=== PATIENT | male | born 1940 | race Caucasian/White ===

== ENCOUNTER → 2021-04-14 10:03 | Outpatient (BNVA) | payer OTHER, SELFPAY | PROVIDERS: Visit Provider Urology | DX: N52.01 Erectile dysfunction due to arterial insufficiency (principal); N32.0 Bladder-neck obstruction; R97.20 Elevated prostate specific antigen [PSA] | CPT/HCPCS: 51798; 99212 ==

== ENCOUNTER 2021-12-19 13:17 | Emergency (ER) | payer OTHER, SELFPAY | END 2021-12-19 14:04 | disposition left against medical advice (07) | PROVIDERS: Emergency Provider Emergency Medicine; PCP Student in an Organized Health Care Education/Training Program | DX: M25.531 Pain in right wrist (principal); M25.532 Pain in left wrist ==

== ENCOUNTER 2022-01-06 10:55 | Outpatient (REF) | payer OTHER, MEDICARE, SELFPAY ==
--- NOTE | ~2022-01-06 | XR_ITS ---
EXAMINATION: XR HIP, LEFT WITH PELVIS XR KNEE, LEFT CLINICAL INFORMATION: Pain in left hip. Pain in the left knee. COMPARISON: None TECHNIQUE: 2 view of the pelvis with 2 views of the left hip. 2 views of the left knee. FINDINGS: Pelvis/left hip: No fracture or dislocation. The hips are well aligned. Mild degenerative change of both hips with narrowing, sclerosis, and small osteophytes. The pelvic rim is intact. Normal bowel gas pattern. Left knee: No fracture or subluxation. Compartmental joint spaces are maintained. Small marginal osteophytes of the patellofemoral compartment. No joint effusion. Vascular calcifications. XR/XR hip LT min 2V IMPRESSION: Mild degenerative change of both hips. Mild degenerative changes at the patellofemoral compartment of the left knee.
--- NOTE | ~2022-01-06 | XR_ITS ---
EXAMINATION: XR HIP, LEFT WITH PELVIS XR KNEE, LEFT CLINICAL INFORMATION: Pain in left hip. Pain in the left knee. COMPARISON: None TECHNIQUE: 2 view of the pelvis with 2 views of the left hip. 2 views of the left knee. FINDINGS: Pelvis/left hip: No fracture or dislocation. The hips are well aligned. Mild degenerative change of both hips with narrowing, sclerosis, and small osteophytes. The pelvic rim is intact. Normal bowel gas pattern. Left knee: No fracture or subluxation. Compartmental joint spaces are maintained. Small marginal osteophytes of the patellofemoral compartment. No joint effusion. Vascular calcifications. XR/XR knee LT 2V IMPRESSION: Mild degenerative change of both hips. Mild degenerative changes at the patellofemoral compartment of the left knee.
== END 2022-01-06 10:56 | disposition home or self-care (01) ==
LOC: HO.XRAY 10:55
PROVIDERS: PCP Student in an Organized Health Care Education/Training Program; Visit Provider Student in an Organized Health Care Education/Training Program
DX: M25.552 Pain in left hip (principal); M25.562 Pain in left knee
CPT/HCPCS: 73502; 73560

== ENCOUNTER 2022-04-07 10:01 | Outpatient (REF) | payer MEDICARE, OTHER, SELFPAY ==
[2022-04-07 12:07] LABS: Prostate Specific Antigen 3.02 ng/mL (<0.05-4.0)
== END 2022-04-07 10:02 | disposition home or self-care (01) ==
LOC: HO.10HDL 10:01
PROVIDERS: Visit Provider Urology
DX: Z12.5 Encounter for screening for malignant neoplasm of prostate (principal); N13.8 Other obstructive and reflux uropathy; N40.1 Benign prostatic hyperplasia with lower urinary tract symptoms; R97.20 Elevated prostate specific antigen [PSA]
CPT/HCPCS: 36415; 84153

== ENCOUNTER → 2022-04-18 09:20 | Outpatient (BNVA) | payer MEDICARE, OTHER, SELFPAY | PROVIDERS: Visit Provider Urology | DX: N52.01 Erectile dysfunction due to arterial insufficiency (principal); N40.1 Benign prostatic hyperplasia with lower urinary tract symptoms; N13.8 Other obstructive and reflux uropathy | CPT/HCPCS: 51798; 99212 ==

== ENCOUNTER → 2022-08-31 13:42 | Outpatient (BNVA) | payer MEDICARE, SELFPAY | PROVIDERS: Visit Provider Urology | DX: R97.20 Elevated prostate specific antigen [PSA] (principal); N32.0 Bladder-neck obstruction; N52.01 Erectile dysfunction due to arterial insufficiency | CPT/HCPCS: Q3014 ==

== ENCOUNTER 2023-08-08 11:51 | Outpatient (REF) | payer MEDICARE, SELFPAY | END 2023-08-08 11:52 | disposition home or self-care (01) | LOC: HO.CHCLDS 11:51 | PROVIDERS: Visit Provider Student in an Organized Health Care Education/Training Program | DX: R74.8 Abnormal levels of other serum enzymes (principal) | CPT/HCPCS: 36415; 80076 ==

== ENCOUNTER 2023-08-30 15:09 | Outpatient (REF) | payer MEDICARE, SELFPAY ==
[2023-08-30 17:04] LABS: Prostate Specific Antigen 4.41 ng/mL (<0.05-4.0)
== END 2023-08-30 15:10 | disposition home or self-care (01) ==
LOC: HO.CHCLDS 15:09
PROVIDERS: Visit Provider Urology
DX: Z12.5 Encounter for screening for malignant neoplasm of prostate (principal); R97.20 Elevated prostate specific antigen [PSA]
CPT/HCPCS: 36415; 84153

== ENCOUNTER 2023-09-05 08:13 | Outpatient (AMB) | payer MEDICARE, SELFPAY ==
--- NOTE | 2023-09-05 08:14 | A.OFFVIS_ITS ---
Intake Intake Visit Reasons: 1Y PSA(set) Intake Note: Patient is Present for Follow Up PSA Urology Medication: Tadalafil Antibiotic Allergies:None Blood Thinners: None Allergies No Known Allergies [No Known Allergies*] Allergy (Verified 09/05/23 08:27) HPI HPI Comments History of Present Illness Details Earl Smith is a very pleasant male. He is a patient of Dr Harrison. He is seen for the following urologic conditions. - lower urinary tract symptoms - erectile dysfunction PSA 4.4 Not currently on medication KD normal Repeat PSA in 6 months Erectile dysfunction Ongoing Failed Viagra 100 mg with dose escalation Failed tadalafil on maximum daily dose Prior discussion regarding penile pump or injections. Lower Urinary Tract Symptoms:? Has stopped all prostate medications Good urination maintained ? Current visit is for?further evaluation of, predominate obstructive symptoms.? Current treatment includes?10/23 GLP large prostate ?medication, alpha joel, 5-AR.? Prostate Symptom Score?08/25 Moderate (9-19), Bother 3.? Symptoms include?incomplete emptying, weak stream, nocturia (>2), and are progressing.? Prostate volume?50+gm.? - PSA 04/27 3.1 ? Associated conditions? CAD ?No ? CVA ?No ? diabetes ?Yes ? elevated PSA ?No ? erectile dysfunction ?yes Treatment plan?continue with current medications.? [facility] Medical History Hematuria Impaired fasting glucose Basal cell carcinoma Incomplete emptying of bladder Benign prostatic hyperplasia with lower urinary tract symptoms Poor urinary stream Nocturia Erectile dysfunction due to arterial insufficiency Gallstones Bladder outlet obstruction Acute cystitis with hematuria Chronic prostatitis Elevated PSA Surgical History History of surgery Review of Systems Const Denies chills and Denies fever(s) Card Reports no additional complaints and Denies syncope Resp Denies cough GI Denies abdominal pain and Denies heartburn Reports as per HPI and Denies change in libido Neuro Denies syncope Psych Denies change in libido Endo Denies change in libido Physical Exam Const General: cooperative, healthy appearing, comfortable and no acute distress Orientation/consciousness: patient oriented x3 HEENT Face and sinus: Yes normal facial exam Mouth: moist mucous membranes Neck Neck: Yes normal visual inspection, Yes full ROM and Yes trachea midline Chest Chest palpation & inspection: normal inspection of the chest Resp Effort & Inspection: normal respiratory effort, able to speak in complete sentences and no respiratory distress GI Inspection: Yes normal to inspection Rectal Exam - Male: Yes normal sphincter tone and Yes prostate normal Male General Exam: Yes normal external exam Penis: normal penis and circumcised Meatus: meatus normal Scrotum: scrotum normal Testes: Testes normal Back/Spine/Pelvis Cervical Spine: normal cervical lordosis Thoracic/Lumbar Spine: thoracic and lumbar spine normal to inspection Skin General skin exam: no rashes or lesions noted Neuro General: patient oriented x3, gait normal, tone normal and moves all extremities Extrem General: Yes normal to inspection and Yes capillary refill normal Assessment & Plan Assessment & Plan (1) Erectile dysfunction due to arterial insufficiency: Code(s): N52.01 - Erectile dysfunction due to arterial insufficiency (2) Bladder outlet obstruction: Code(s): N32.0 - Bladder-neck obstruction Plan Six-month follow-up PSA Orders: Orders PSA,Total (Free>4and<10) 6 Months R97.20 - Elevated prostate specific antigen [PSA] Patient Instructions: Imaging studies, laboratory and physical exam results were discussed and reviewed in detail. No major barriers to patient understanding were identified. An opportunity to ask questions regarding the treatment plan was provided. All questions were answered. The patient expressed understanding and agreement with the above treatment plan. The patient is aware they should contact our office by phone for worsening of their current condition or the appearance of new urologic symptoms. Compliance is encouraged with any medications and followup testing that is ordered. It is a privilege to participate in the urologic care of your patient. If you have any questions or concerns regarding treatment for the above conditions, or other urologic issues, please do not hesitate to contact me. The office telephone contact is [phone]. This note is constructed using voice recognition software. While every effort has been made to ensure accuracy line installer repairer errors may have been included. Yours sincerely, Dr Ayad Watson MD, [facility] - Urology Providers of Expert, Compassionate Care for the Genitourinary System Coding Level of Care Code Est Pt Level 4 (13819) Diagnoses Erectile dysfunction due to arterial insufficiency N52.01 Bladder outlet obstruction N32.0
== END 2023-09-05 09:04 | disposition home or self-care (01) ==
PROVIDERS: Visit Provider Urology
DX: N52.01 Erectile dysfunction due to arterial insufficiency (principal); N32.0 Bladder-neck obstruction
CPT/HCPCS: 99213

== ENCOUNTER → 2023-09-05 08:13 | Outpatient (BNVA) | payer MEDICARE, SELFPAY | PROVIDERS: Visit Provider Urology | DX: N52.01 Erectile dysfunction due to arterial insufficiency (principal); N32.0 Bladder-neck obstruction | CPT/HCPCS: 99212 ==

== ENCOUNTER 2023-10-01 11:19 | Outpatient (REF) | payer MEDICARE, SELFPAY ==
[2023-10-01 15:07] LABS: Estimated Average Glucose 120 mg/dL; Hemoglobin A1c % 5.8 % (<6.0)
[2023-10-01 15:13] LABS: Anion Gap 14 (12-20); Blood Urea Nitrogen 9 mg/dL (9-16); Calcium 9.3 mg/dL (8.4-10.2); Carbon Dioxide 27 mmol/L (22-29); Chloride 102 mmol/L (96-108); Estimated Glomerular Filt Rate > 60; Glucose Random 146 mg/dL (60-115); Potassium 3.7 mmol/L (3.3-5.1); Sodium 139 mmol/L (135-145)
== END 2023-10-01 11:20 | disposition home or self-care (01) ==
LOC: HO.CHCLDS 11:19
PROVIDERS: Visit Provider Student in an Organized Health Care Education/Training Program
DX: R73.09 Other abnormal glucose (principal)
CPT/HCPCS: 36415; 80048; 83036

== ENCOUNTER 2024-01-21 14:07 | Emergency (ER) | payer MEDICARE, SELFPAY ==
--- NOTE | ~2024-01-21 | CT_ITS ---
EXAMINATION: CT HEAD W/O IV CONTRAST CT CERVICAL SPINE W/O IV CONTRAST CLINICAL INFORMATION: History of fall 9 days ago. Trauma. Vision changes. COMPARISON: None TECHNIQUE: Head - Contiguous axial imaging of the head was performed from the skull base to the vertex without the administration of intravenous contrast, and axial images are reconstructed at 2 mm and 5 mm slice thickness. Cervical spine - A volumetric, helical CT acquisition of the cervical spine was obtained without contrast; in addition to the standard set of axial images, multiplanar reformatted images were provided in the coronal and sagittal imaging planes. This CT examination was performed using dose optimization techniques as appropriate, variously including the following: *Automated exposure control *Adjustment of mA and/or kV according to patient size (this includes techniques or standardized protocols for targeted exams where dose is matched to indication/reason for exam; i.e. extremities or head) *Use of iterative reconstruction technique DLP: 1072 mGy-cm (total) FINDINGS: HEAD: No intracranial hemorrhage, extra-axial surface collection, focal mass effect or midline shift. Atherosclerotic calcification of cavernous carotid arteries and intradural segments of vertebral arteries. Patchy hypoattenuation within supratentorial white matter is compatible with sequela of chronic microangiopathy and there are old lacunar infarcts in gangliocapsular regions. There are areas of encephalomalacia from old infarcts within the superior right frontal lobe and inferior left cerebellum. A region of hypoattenuation with loss of alejo-white differentiation in the right occipital lobe could represent a subacute infarction (images 20-24, series 4). Moderate parenchymal volume loss with commensurate prominence of ventricles and sulci. No hydrocephalus. No scalp hematoma or calvarial fracture. The visualized paranasal sinuses and mastoid air cells are well aerated. 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 Prior ocular lens extractions/replacements. CERVICAL SPINE: The cervical spine has well preserved lordotic curvature. The craniocervical junction is normal. The occipital condyles, dens and atlantodental articulation are intact. The vertebral body heights and alignment are maintained. No fractures in the anterior or posterior elements. No prevertebral edema or soft tissue hematoma. There is multilevel disc degenerative change and facet arthropathy. The facet joint degeneration is worst on the left at C2-C3. There is osseous fusion between the C3 and C4 vertebral bodies. There is no significant stenosis of the cervical spinal canal. The uncovertebral joint hypertrophy at C4-C5 causes moderate bilateral neural foraminal stenosis. Thyroid gland is atrophied and otherwise unremarkable. No acute findings within visualized lung apices. CT/CT cervical spine wo IV con IMPRESSION: * No evidence of intracranial mass or hemorrhage. 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 * The area of hypoattenuation in the right occipital lobe could represent a subacute infarction (images 20-24, series 4). * No acute fracture or malalignment of the degenerated cervical spine.
[2024-01-21 14:11] VITALS: BP 137/82; PULSE 102; RESP 16; TEMP 36.6; O2SAT 98; BMI 24.7
--- NOTE | 2024-01-21 14:11 | ED.GENADULT ---
HPI - General Adult General Chief complaint: Eye Problems Stated complaint: head inj sent in by pcp for ct scan Related Data Home Medications ?Medication ?Instructions ?Recorded ?Confirmed betamethasone dipropionate 0.05 % topical BID 04/14/21 08/31/22 topical ointment cyclosporine 100 mg capsule 100 mg PO DAILY 04/14/21 08/31/22 cyclosporine 100 mg capsule 200 mg PO BID 04/14/21 08/31/22 hydroxyzine HCl 10 mg tablet 10 mg PO DAILY PRN anxiety 04/18/22 08/31/22 Previous Rx's ?Medication ?Instructions ?Recorded celecoxib 100 mg capsule 100 mg PO BID 30 days #60 caps 04/18/22 tadalafil 20 mg tablet 20 mg PO DAILY sexual activity 90 05/30/22 days #90 tabs Allergies Allergy/AdvReac Type Severity Reaction Status Date / Time No Known Allergies Allergy Verified 01/21/24 14:16 [No Known Allergies*] [facility] Past Medical History Medical History Hematuria Impaired fasting glucose Basal cell carcinoma Incomplete emptying of bladder Benign prostatic hyperplasia with lower urinary tract symptoms Poor urinary stream Nocturia Erectile dysfunction due to arterial insufficiency Gallstones Bladder outlet obstruction Acute cystitis with hematuria Chronic prostatitis Elevated PSA Surgical History History of surgery Social History Social History Advance Directives: No Advance Directives Information Provided: No Physical Exam ED Vital Signs: BMI result Body Mass Index 24.7 Course Course Course Narrative: This is a rapid medical exam completed by Mckenzie BOLIVARN: Additional HPI, ROS, PE not included below will be deferred to primary provider. Double vision for the past 5 days with blurred vision in both eyes starting today. Reports that he had a fall on January 09. Reports slight headaches and sensation of vertigo Spoke to his PCP earlier this morning who recommended he come to the ED for a CT scan of the head. Contacted his eye dr for an emergency appt and saw Dr Burgess who reports that there was a problem with a lense that was replaced several years ago for cataracts as there is increased calcium and needs replacement. Discharge Plan Discharge Clinical Impression: Left before treatment completed Patient Disposition: Left W/O Completing Treatment Prescriptions: No Action tadalafil 20 mg tablet 20 mg PO DAILY 90 Days Qty: 90 0RF cyclosporine 100 mg capsule 200 mg PO BID betamethasone dipropionate 0.05 % ointment topical BID cyclosporine 100 mg capsule 100 mg PO DAILY hydroxyzine HCl 10 mg tablet 10 mg PO DAILY PRN (Reason: anxiety) celecoxib 100 mg capsule 100 mg PO BID 30 Days Qty: 60 0RF Interventions: EVITA Worksheet Last Done: 01/21/24 19:28 Discharge Date/Time: 01/21/24 19:44
--- NOTE | 2024-01-21 18:00 | MHC.EDTECH ---
This pct called patient 4 seperate times and all 4 times patient was abscent from waiting room. RN Aware
== END 2024-01-21 19:44 | disposition left against medical advice (07) ==
LOC: HO.ED 19:33
PROVIDERS: Emergency Provider Emergency Medicine; PCP Student in an Organized Health Care Education/Training Program
DX: H53.2 Diplopia (principal); H53.9 Unspecified visual disturbance; M54.2 Cervicalgia; R51.9 Headache, unspecified
CPT/HCPCS: 70450; 72125; 99281; 99284

== ENCOUNTER 2024-02-27 06:36 | Outpatient (REF) | payer MEDICARE, SELFPAY ==
--- NOTE | ~2024-02-27 | MR_ITS ---
MRI OF THE BRAIN WITHOUT IV CONTRAST INDICATION: Question subacute stroke. COMPARISON: Head CT January 21, 2024. TECHNIQUE: Multiplanar multisequence MR imaging of the brain was obtained without IV contrast. FINDINGS: There is an early subacute appearing infarct involving the right splenium of the corpus callosum, the right peritrigonal white matter, and the right occipital lobe. Cytotoxic edema results in mild local cerebral sulcal effacement without midline shift. There is no hemorrhagic transformation. There is global cerebral volume loss, there is moderate chronic microangiopathy, and there are chronic infarcts within the right perirolandic region, the centrum semiovale bilaterally, the coronal radiata bilaterally, and the left cerebellum. Etat crible appearance of the basal ganglia bilaterally as the sequela of chronic hypertension. Absent right vertebral artery flow void suggesting slow flow within versus occlusion of this vessel. Previously There is no hydrocephalus, extra-axial surface collection, or herniation. There is no intracranial hemorrhage on the gradient recalled echo acquisition. The midline structures are normal. The cerebellar tonsils are normally positioned. The craniocervical junction is normal. Osseous marrow signal intensity is homogenous. The visualized soft tissues are unremarkable. MR/MR head/brain wo con IMPRESSION: * There is an early subacute appearing infarct involving the right splenium of the corpus callosum, the right peritrigonal white matter, and the right occipital lobe. Cytotoxic edema results in mild local cerebral sulcal effacement without midline shift. There is no hemorrhagic transformation. * There is global cerebral volume loss, there is moderate chronic microangiopathy, and there are chronic infarcts within the right perirolandic region, the centrum semiovale bilaterally, the coronal radiata bilaterally, and the left cerebellum. Etat crible appearance of the basal ganglia bilaterally as the sequela of chronic hypertension. * Absent right vertebral artery flow void suggesting slow flow within versus occlusion of this vessel.
== END 2024-02-27 06:37 | disposition home or self-care (01) ==
LOC: HO.MRI 06:36
PROVIDERS: PCP Student in an Organized Health Care Education/Training Program; Visit Provider General Practice
DX: Z86.73 Personal history of transient ischemic attack (TIA), and cerebral infarction without residual deficits (principal)
CPT/HCPCS: 70551

== ENCOUNTER 2024-03-10 16:14 | Emergency (ER) | payer MEDICARE, SELFPAY ==
--- NOTE | ~2024-03-10 | CT_ITS ---
EXAMINATION: CT HEAD WITHOUT CONTRAST CT CERVICAL SPINE WITHOUT CONTRAST CLINICAL INFORMATION: Fall. COMPARISON: MRI of the brain February 27, 2024. CT head January 21, 2024 TECHNIQUE: Imaging was performed from the skull base to vertex without intravenous administration of contrast. In addition, helical noncontrast CT imaging was acquired through the cervical spine and source images were reviewed along with axial reconstructions and sagittal and coronal MPRs. [This CT examination was performed using dose optimization techniques as appropriate, variously including the following: *Automated exposure control *Adjustment of mA and/or kV according to patient size (this includes techniques or standardized protocols for targeted exams where dose is matched to indication/reason for exam; i.e. extremities or head) *Use of iterative reconstruction technique] DLP: 961 mGy-cm FINDINGS: HEAD: No intracranial mass, hemorrhage, or midline shift is visualized. 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 There is a larger geographic area of low attenuation in the right occipital lobe consistent with old infarct. This infarct previously demonstrated diffusion weighted imaging restriction on MR exam February 27, 2024. No evidence of an acute infarct. There is generalized global volume loss. There is moderate prominence of the ventricles and the sulci . There is moderate hypodensity of the periventricular white matter due to chronic small vessel ischemic disease. There are vascular calcifications of the internal carotid arteries bilaterally. No extra-axial collections are identified. The paranasal sinuses and mastoid air cells are well aerated. CERVICAL SPINE: There is no evidence of acute cervical spine fracture. Vertebral bodies remain normal in height. Cervical vertebrae have normal alignment. There is multilevel degenerative spondylosis of the cervical spine with disc height narrowing and endplate spurs and facet joint arthrosis No pre- or paravertebral soft tissue abnormality is identified. Limited assessment of the lung apices is unremarkable. CT/CT cervical spine wo IV con IMPRESSION: 1. No acute intracranial pathology. 2. No CT evidence of acute cervical spine fracture or traumatic subluxation
--- NOTE | ~2024-03-10 | XR_ITS ---
EXAMINATION: XR HIP, LEFT CLINICAL INFORMATION: Pain COMPARISON: 01/06/2022 TECHNIQUE: Frontal view the pelvis with coned frontal and frog-leg lateral views of the left hip. FINDINGS: Degenerative changes seen within both hips with mild marginal osteophyte formation along the superior acetabula. I do not appreciate any cortical disruption or trabecular irregularity to suggest underlying fracture or dislocation. Unremarkable bowel gas pattern. XR/XR hip LT w PEL1V IMPRESSION: Mild degenerative changes but no acute fracture or dislocation.
--- NOTE | ~2024-03-10 | XR_ITS ---
EXAMINATION: XR CHEST CLINICAL INFORMATION: Fall COMPARISON: Chest radiograph 02/18/2019 TECHNIQUE: 2 views of the chest were obtained. FINDINGS: There is a thoracic kyphosis with mild anterior wedging of thoracic vertebral bodies. No other significant abnormality is noted involving the heart, lungs, mediastinum, bony thorax or soft tissues. Compared with 02/18/2019, there's been no interval change. XR/XR chest 2V IMPRESSION: No acute intrathoracic disease. Thoracic kyphosis with mild anterior wedging of thoracic vertebral bodies.
[2024-03-10 16:29] VITALS: BP 129/77; BP 132/62; PULSE 78; PULSE 98; RESP 18; TEMP 36.6; O2SAT 98; O2SAT 99; BMI 20.8
--- NOTE | 2024-03-10 16:32 | ECG_ITS ---
Test Reason : fall Blood Pressure : / mmHG Vent. Rate : 085 BPM Atrial Rate : 085 BPM P-R Int : 216 ms QRS Dur : 074 ms QT Int : 352 ms P-R-T Axes : 090 -03 049 degrees QTc Int : 418 ms Sinus rhythm with 1st degree A-V block Nonspecific ST and T wave abnormality Abnormal ECG No previous ECGs available Referred By: Barry Pisano Electronically Signed By:ASTER ESPINO MD
--- NOTE | 2024-03-10 16:34 | ED.FALL ---
HPI - Fall General Chief Complaint: Fall Stated Complaint: fall/dizziness, secondary to vertigo, no thinners Time Seen by Provider: 03/10/24 16:26 Source: patient Mode of arrival: ambulatory Limitations: no limitations History of Present Illness HPI Narrative: 84-year-old male presents via EMS after a fall. Patient states that he was getting to the bathroom around 02:00 and states he felt slightly dizzy and then fell backwards he states he did not lose conscious he did not hit his head he states he is down for prolonged period of time he noticed some stool underneath him he is able to get up with the bathroom after that. Patient found by EMS this state there was no stool or urine on him. Patient is unsure if he hit his head or if he had loss of consciousness he is unsure how long he was down. Patient was found by elderly services who came to check on him. He lives alone Related Data Home Medications ?Medication ?Instructions ?Recorded ?Confirmed betamethasone dipropionate 0.05 % topical BID 04/14/21 08/31/22 topical ointment cyclosporine 100 mg capsule 100 mg PO DAILY 04/14/21 08/31/22 cyclosporine 100 mg capsule 200 mg PO BID 04/14/21 08/31/22 hydroxyzine HCl 10 mg tablet 10 mg PO DAILY PRN anxiety 04/18/22 08/31/22 Previous Rx's ?Medication ?Instructions ?Recorded celecoxib 100 mg capsule 100 mg PO BID 30 days #60 caps 04/18/22 tadalafil 20 mg tablet 20 mg PO DAILY sexual activity 90 05/30/22 days #90 tabs Allergies Allergy/AdvReac Type Severity Reaction Status Date / Time No Known Allergies Allergy Verified 03/10/24 16:31 [No Known Allergies*] [facility] Past Medical History Medical History Hematuria Impaired fasting glucose Basal cell carcinoma Incomplete emptying of bladder Benign prostatic hyperplasia with lower urinary tract symptoms Poor urinary stream Nocturia Erectile dysfunction due to arterial insufficiency Gallstones Bladder outlet obstruction Acute cystitis with hematuria Chronic prostatitis Elevated PSA Surgical History History of surgery Social History Social History Alcohol intake: current Alcohol intake frequency: 3 or more drinks per day Alcohol type: beer Smoked in Last 30 Days: No Use of substances other than those prescribed or required for medical reasons: No Advance Directives: Yes Advance Directives Information Provided: No Advance Directives on File: No Physical Exam Vital Signs: Vital Signs: Last Vital Signs Temp 97.8 F 03/10/24 16:29 Pulse 81 03/10/24 17:35 Resp 16 03/10/24 17:35 BP 147/81 H 03/10/24 17:35 Pulse Ox 99 03/10/24 17:35 O2 Del Method Room Air 03/10/24 17:35 BMI result Body Mass Index 20.8 Course Course Course Narrative: Patient had CT and labs done he will be seen by PT and case management likely tomorrow. Failed ambulation trial here. Medications Administered Discontinued Medications Generic Name Dose Route Start Last Admin Trade Name Freq PRN Reason Stop Dose Admin Sodium Chloride 1,000 mls @ 999 mls/hr 03/10/24 16:45 03/10/24 17:35 Ns IV 03/10/24 17:45 999 mls/hr .Q1H1M [facility] Administration Medical Decision Making Medical Decision Making [facility] Narrative: I will get CT and labs and reassess. Differential Diagnosis Differential Diagnoses: The differential diagnosis associated with the presentation includes Fall prolonged downtime rhabdomyolysis dehydration acute intracranial hemorrhage injury nutrition again Admission/Observation Consideration of admission/observation: Escalation of care including admission/observation considered Lab Data [facility] Lab Attestation statement: I reviewed the patient's lab results. 03/10/24 17:31 03/10/24 17:31 Labs: Lab Results 03/10/24 Range/Units 17:31 WBC 9.7 (4.8-10.8) X10*3/uL RBC 4.23 L (4.60-5.80) X10*6/uL Hgb 12.0 L (14.0-18.0) g/dl Hct 36.0 L (42.0-52.0) % MCV 85.1 (80.0-98.0) fL MCH 28.4 (27.0-33.0) pg MCHC 33.3 (31.0-36.0) g/dl RDW 14.7 (11.0-16.0) % Plt Count 326 (160-400) X10*3/uL MPV 9.5 (9.4-12.4) fL Immature Gran % (Auto) 0.4 (0.0-0.4) % Neut % (Auto) 70.3 (45-73) % Lymph % (Auto) 19.3 L (20-40) % King % (Auto) 8.2 (2-11) % Eos % (Auto) 1.5 (0-4) % Baso % (Auto) 0.3 (0-2) % Lymph # (Auto) 1.9 (1.2-4.9) X10*3/uL King # (Auto) 0.8 (0.1-1.2) X10*3/uL Eos # (Auto) 0.2 (0.0-0.4) X10*3/uL Baso # (Auto) 0.0 (0.0-0.2) X10*3/uL Abs Immat Gran (auto) 0.04 H (0.00-0.03) X10*3/uL Absolute Neuts (auto) 6.8 (2.0-8.3) x10*3/uL Absolute Nucleated RBC 0.000 (0.0-0.012) X10*3/uL Nucleated RBC % (auto) 0.0 (0.0-0.2) /100WBC Sodium 140 (135-145) mmol/L Potassium 2.9 L* D (3.3-5.1) mmol/L Chloride 104 (96-108) mmol/L Carbon Dioxide 23 (22-29) mmol/L Anion Gap 16 (12-20) BUN 27 H (9-16) mg/dL Creatinine 1.27 (0.5-1.4) mg/dL Estim Creat Clear Calc 41.9 Estimated GFR 54 Random Glucose 171 H (60-115) mg/dL Calcium 10.6 H D (8.4-10.2) mg/dL Total Bilirubin 0.6 (0.0-1.0) mg/dL Direct Bilirubin 0.3 (0.0-0.5) mg/dL AST 12 (5-37) U/L ALT 15 (0-40) U/L Alkaline Phosphatase 79 (39-117) U/L Total Creatine Kinase 21 L (38-174) U/L Total Protein 6.7 (6.5-8.0) g/dL Albumin 3.4 L (3.5-5.0) g/dL Lipase 53 (8-78) U/L Independent Interpretation I performed an independent interpretation of an: EKG, Plain X-Ray and CT Scan Interpretation: EKG rate 85 normal sinus rhythm normal intervals no signs of ischemia no previous for comparison interpreted by me Radiology Impression Discussion of test interpretation with radiology: I have reviewed the radiologist's reading. Independent Historian Clinical information obtained from an independent historian. History obtained from or confirmed by: EMS External Record Review External record reviewed: Inpatient record, Office record and Outpatient record Social Determinants Patient?s care significantly limited by Social Determinants of Health including: Inadequate housing and Problems related to primary support group Lives alone Discharge Plan Discharge Clinical Impression: Fall, Weakness Patient Disposition: Still a Patient Prescriptions: No Action tadalafil 20 mg tablet 20 mg PO DAILY 90 Days Qty: 90 0RF cyclosporine 100 mg capsule 200 mg PO BID betamethasone dipropionate 0.05 % ointment topical BID cyclosporine 100 mg capsule 100 mg PO DAILY hydroxyzine HCl 10 mg tablet 10 mg PO DAILY PRN (Reason: anxiety) celecoxib 100 mg capsule 100 mg PO BID 30 Days Qty: 60 0RF Print Language: Albanian
[2024-03-10 17:34] LABS: MANUAL DIFF FLAG NO
[2024-03-10 17:35] VITALS: BP 147/81; PULSE 79; PULSE 81; RESP 16; O2SAT 99
[2024-03-10] MEDS: 0.9 % Sodium Chloride 1,000 ML 999 ML IV (17:35)
--- NOTE | 2024-03-10 17:38 | PC.NURSE ---
cleansed of stool. good bed mobility. skin pwd. pt had cleaned himself up a little. dry mm. axox3. nsr on monitor.
[2024-03-10 17:39] LABS: Basophils Percent Auto 0.3 % (0-2); Eosinophils Absolute Auto 0.2 X10*3/uL (0.0-0.4); Eosinophils Percent Auto 1.5 % (0-4); Imm Gran Abs Auto 0.04 X10*3/uL (0.00-0.03); Imm Gran Pct Auto 0.4 % (0.0-0.4); Lymphocytes Absolute Auto 1.9 X10*3/uL (1.2-4.9); Lymphocytes Percent Auto 19.3 % (20-40); Mean Corpuscular HGB Conc 33.3 g/dl (31.0-36.0); Mean Corpuscular Hemoglobin 28.4 pg (27.0-33.0); Mean Corpuscular Volume 85.1 fL (80.0-98.0); Mean Platelet Volume 9.5 fL (9.4-12.4); Monocytes Absolute Auto 0.8 X10*3/uL (0.1-1.2); Monocytes Percent Auto 8.2 % (2-11); Neutrophils Absolute Auto 6.8 x10*3/uL (2.0-8.3); Neutrophils Percent Auto 70.3 % (45-73); Platelet Count 326 X10*3/uL (160-400); Red Blood Count 4.23 X10*6/uL (4.60-5.80); Red Cell Distribution Width 14.7 % (11.0-16.0); White Blood Count 9.7 X10*3/uL (4.8-10.8)
[2024-03-10 17:54] LABS: Alanine Aminotransferase 15 U/L (0-40); Albumin Level 3.4 g/dL (3.5-5.0); Alkaline Phosphatase 79 U/L (39-117); Anion Gap 16 (12-20); Aspartate Amino Transferase 12 U/L (5-37); Bilirubin Direct 0.3 mg/dL (0.0-0.5); Bilirubin Total 0.6 mg/dL (0.0-1.0); Blood Urea Nitrogen 27 mg/dL (9-16); Calcium 10.6 mg/dL (8.4-10.2); Carbon Dioxide 23 mmol/L (22-29); Chloride 104 mmol/L (96-108); Creatinine Clr Calc Pharmacy 41.9; Estimated Glomerular Filt Rate 54; Glucose Random 171 mg/dL (60-115); Lipase 53 U/L (8-78); Potassium 2.9 mmol/L (3.3-5.1); Sodium 140 mmol/L (135-145); Total Protein 6.7 g/dL (6.5-8.0)
--- NOTE | 2024-03-10 19:44 | PC.NURSE ---
Pt ca&ox3, no signs of distress. Pt up oob walking with tech assist, unsteady gait Pt denies pain at this time Plan of care ongoing.
[2024-03-10] MEDS: Potassium Chloride/H20 10 MEQ/100 ML PIGGYBACK 100 MEQ IV (21:29)
[2024-03-10] MEDS: Potassium Chloride ER 20 MEQ TAB.ER.PRT 40 MEQ PO (21:30)
--- NOTE | 2024-03-10 21:37 | PC.NURSE ---
Pt medicated per oct. This RN medicated pt with meds due from previous shift. This RN documented on ns from previous shift, pt was not connected to ns when this RN assumed care. Plan of care ongoing.
[2024-03-10 21:42] LABS: Appearance Urine Clear; Color Urine Yellow; Glucose Urine UA Negative (Negative); Leukocyte Esterase Urine Trace (Negative); Nitrite Urine Negative (Negative); PH 5.5 (5.0-9.0); Specific Gravity - Urine 1.025 (1.005-1.025); UMIC TRIGGER UACC YES; Urine Blood Negative (Negative); Urine Ketones 15 mg/dL (Negative); Urine Protein 30 (1+) mg/dL (Neg-Trace)
--- NOTE | 2024-03-10 21:43 | MHC.CM.ED ---
CM met with patient at the request of Dr. Pisano. He likes to be called MARYELLEN. Pt is A&Ox3. Pt lives alone. Uses a cane. Has no services. Pt has extremely poor vision; he can only see shadows, no details. He cannot read, drive or cook. He states he gets take out or his neighbor cooks him food. He is estranged from his children, but he does not say much more. He states he does not take any medication except for tylenol arthritis and motrin. He does speak with his sister, Estefani Smith, who is a retired RN and is 95 years old. He tells CM she is his HCP and that he completed paper work. Pt Tells CM that his problem is his vision and if Dr. Shira Evans would fix his vision, he would be fine. Pt tells CM that Dr. Evans removed his lenses and now he can't see. She says he has been like this for 2 months. He has no follow up appointment with Dr. Evans. His PCP is Dr. Stark. He has no appointment scheduled that he knows of. His neighbor has helped him with rides in the past, but he states he told her not to bother him, so he does not think she will be helping him in the future. Pt is very resistant to having any help in the home. He tells me that [facility] tried to get him a life alert, but he refused. He does think he might need help, but he refuses to have anyone help him. Pt is agreeable to PT evaluation, but states he will not have physical therapy. Pt gets teary when speaking about his family and his children. Pt is agreeable to speaking with his sister, Estefani ([phone]). CM called and left a message to return our call. Pt begrudgingly agreed to CM calling his son, Earl ([phone]), but he does not think he will speak with me. CM called and spoke with son, Earl. Earl tells CM that he has been estranged from his father for about a year. States he hasn't been truthful with him growing up, but did not elaborate on this. States his father can be very difficult and will not do what he does not want to. Earl feels like his father needs help at home, but agrees that he will not accept it. Earl reports that his father had cataract surgery 2 years ago, and recently has some issues with a film across his lens, which the eye doctor was going to repair, but then he had a stroke. He believes his father's vision has been poor for a while. Earl admits that he got most of his information about his father from his sister. Earl believes he should be the contact for his father. Pt failed trial ambulation. PT is pending. No referrals placed, as patient is still not agreeable to any assistance. CM received a telephone call from Marie at [facility] [place]. She tells CM they are opening an investigation. They found him today on the floor in the bathroom. He was covered in feces and urine. She tells CM that [facility] has tried to offer services in the home, but the patient has refused help. Barry Christensen will be the contact at [facility] [place]. Pt does not seem to understand that he is not safe at home and cannot continue to live like this without help. He is alert and oriented. If patient is not agreeable to STR or help in the home, then CM may need to request a psych evaluation for capacity to determine if patient is safe to make decisions to go home. CM will follow for safe discharge planning.
[2024-03-10 22:57] LABS: Bacteria Urine Trace (None Seen); RBC Urine 0-2 /HPF (0-2); Squamous Epithelial Cell Urine 0-2 /HPF (0-2); UACC Culture Trigger YES
[2024-03-10 23:06] VITALS: BP 133/72; PULSE 96; RESP 16; TEMP 36.6; O2SAT 96
--- NOTE | 2024-03-11 01:04 | MHC.EDTECH ---
pt assisted with urinal. pt voided and back in bed and in position of comfort. Call siddiqui within reach, pt given warm blanket. all needs met.
[2024-03-11 06:06] VITALS: BP 132/70; PULSE 75; RESP 18; TEMP 36.7; O2SAT 98
--- NOTE | 2024-03-11 07:10 | PC.NURSE ---
Resumed care of pt at 0700, resting in bed quietly. Respirations even and unlabored, no increased WOB/SOB. Pt waiting for PT eval. Call siddiqui within reach, pt aware of plan of care.
[2024-03-11 07:53] VITALS: BP 132/70; PULSE 75; O2SAT 98
--- NOTE | 2024-03-11 10:09 | PHA.MEDREC ---
Pharmacy Consult ? Medication Reconciliation Pharmacy has completed the medication reconciliation. Patient stated hes on no prescriptions medications . Confirmed hes on a dandruff shampoo and two creams, one for a rash and one for pain. Patient also states he takes Tylenol arthritis , Celebrex and ibuprofen 600 mg for his arthritis pain
[2024-03-11 13:58] VITALS: BP 123/69; PULSE 86; RESP 18; TEMP 36.9; O2SAT 95
--- NOTE | 2024-03-11 14:49 | MHC.CM.PN ---
PT rec STR. STR referrals placed and pts has 2 local bed offers. This CM met with pt to discuss discharge plan, pt is not in agreement with going to STR. Pt is agreeable with going home with new VNA services. VNA referral placed, and [facility]. ED PA updated, psych eval will be ordered due to question of capacity.
--- NOTE | 2024-03-11 18:04 | MHC.CM.ED ---
CM had a ann discussion with this patient regarding his decision not to go to STR. Explained that PT feels he is at high risk for falls. Pt tells CM that his neighbors will help him. CM explained that neighbors help is not a good plan. Pt is willing to have VNA, but CM did explain to him that more intensive rehab is needed first, then home PT would be a good decision. Pt is persevering on his vision and thinks that if Dr. Shira Evans fixes his eyes, he will be okay. Pt does not seem to understand the consequences of his actions and decision making. CM explained that [facility] received a report with concerns that he can care for himself. Pt thinks it is a neighbor who is trying to make trouble. CM explained that I have spoken with his son. Pt is quite surprised that his son has spoken to me. CM explained that his son has requested updates. CM explained that psych will see him to ascertain if he has the ability to make decisions, as he seems to be making poor decisions regarding his living situation. CM explained that if the psych evaluation determines he can make his decisions, then he will be discharged home with services and [facility] follow up. Pt is agreeable. Pt understands that he will stay overnight. CM made another telephone call to sister, Estefani. Message left. CM spoke with Earl. He states his aunt is not well and has a special phone, that may not be working. He requests that we speak with him. CM did explain that the patient tells CM that she is his HCP. He will see his aunt this weekend and will find out if she has the HCP and if she is willing to serve as his HCP. CM reviewed above with son, Earl. He has concerns for the past year that he father is not able to care for himself, but he did not know about [facility] and they have been estranged for about a year now. Earl is agreeable to the plan for psych evaluation. Earl requests that CM keep him updated.
--- NOTE | 2024-03-11 19:12 | MHC.EDTECH ---
Patient cell phone without charge. This tech offered to walk phone to appraisal specialist. This tech walked phone to main ED and plugged in at secretary bookkeeper desk. Left name and room number on phone. This tech spoke with director community health nursing and informed her I would be back in about an hour for it.
[2024-03-11 19:26] VITALS: BP 137/71; PULSE 72; RESP 17; TEMP 36.5; O2SAT 99
[2024-03-11 19:59] LABS: Anion Gap 15 (12-20); Blood Urea Nitrogen 16 mg/dL (9-16); Calcium 9.9 mg/dL (8.4-10.2); Carbon Dioxide 23 mmol/L (22-29); Chloride 106 mmol/L (96-108); Creatinine Clr Calc Pharmacy 64.1; Estimated Glomerular Filt Rate > 60; Glucose Random 176 mg/dL (60-115); Potassium 3.1 mmol/L (3.3-5.1); Sodium 141 mmol/L (135-145)
--- NOTE | 2024-03-11 20:13 | MHC.EDTECH ---
Patient requesting food. No dinner in main ED. Patient stated he would not eat any bird or fish. Provided patient with peanut butter crackers, pudding, and cheese sticks. All needs met.
--- NOTE | 2024-03-11 21:07 | MHC.EDTECH ---
Patient needed to use restroom. This tech at RN Ofelia request attempted to ambulate patient with walker. Patient stood with no assistance, after first step forward patient started to fall backwards, this tech steadied patient and sat him back on the bed. Obtained urinal and assisted patient to standing position. Patient unable to void currently. Urinal hung at bedside, patient back in bed with warm blanket and call siddiqui in hand. All needs currently met. Patient for two person assist or a stand and pivot.
--- NOTE | 2024-03-11 21:53 | PC.NURSE ---
Report taken from Alba LEE assumed care of pt at 1900. Pt A&Ox2 skin pwd respirations even unlabored. Denies pain. Dinner tray not provided in Main ED and cafeteria closed once pt moved to overflow, pt provided with sandwich, snacks, and PO fluids. Attempted to ambulate to bathroom with 1 assist and walker- unsteady gait. Returned to bed and utilized urinal. Awaiting psych eval for capacity. Will continue to monitor for additional needs.
--- NOTE | 2024-03-11 23:26 | MHC.EDTECH ---
This tech took over care of patient at 2300,rounds completed,patient is resting quietly,clean and dry at this time,bed alarm on for safety,call siddiqui in reach
--- NOTE | 2024-03-12 01:17 | MHC.EDTECH ---
Addendum entered by Yesy Gong 03/12/24 01:21: output in urinal 150MLS Original Note: Patient stood up with the tech to use the urinal,yellow in color,shelby-care given patient was steady while standing.call siddiqui in reach bed alarm on for safety
[2024-03-12 03:31] VITALS: BP 148/86; PULSE 87; RESP 17; TEMP 37.1; O2SAT 99
--- NOTE | 2024-03-12 03:52 | MHC.EDTECH ---
Patient sat on the side of the bed looking for his bag patient took his check book out and stated he needed to sign papers,patient was redirected but he wouldn't let this tech place it back in bag placed it on bedside table RN at bedside,patient then asked for a brief I told patient we don't have briefs he stated that they were down the aisle across from him this tech got patient a pull up, patient is pleasantly confused and redirectable at this time, Patient was given a jello call siddiqui in reach bed alarm on for safety
--- NOTE | 2024-03-12 06:54 | MHC.EDTECH ---
Patient stood at the side of the bed and urinated in urinal 100MLS of yellow urine,warm blanket given,call siddiqui in reach and bed alarm on for safety
--- NOTE | 2024-03-12 09:20 | MHC.CM.PN ---
Addendum entered by Marzena Mccarthy RN 03/12/24 16:01: PER PSYCH PROVIDER, PT ORIENTED X ONE ONLY AND WILL PUT IN CARE TEAM EVAL FOR POSSIBLE ADMISSION TO [facility] DIRECTOR AWARE. Original Note: EMR REVIEWED, PT AWAITING PSYCH EVAL FOR COMPETENCY, DISPO PENDING COMPETENCY EVAL, PT HAS MULTIPLE SNF'S AND [facility] FOLLOWING, CM WILL CONT TO FOLLOW DC NEEDS.
--- NOTE | 2024-03-12 11:49 | PC.NURSE ---
this nurse took over care of patient at 9a, pt sleeping, wakes to verbal stimulus, rr equal/non labored, pt awaiting psych competency eval, fall precautions intact/bed alarm intact, call siddqiui within reach will continue to monitor
[2024-03-12 14:12] VITALS: BP 100/57; PULSE 75; RESP 16; TEMP 36.4; O2SAT 95
--- NOTE | 2024-03-12 15:05 | PC.NURSE ---
Contact information for Case Mgmt and provider Patients friend Martin Olguin came in to see patient, his contact number is [phone]. He wishes to be contacted when the patient is moved to a facility so he can continue to visit. He also stated that he is the person that initiated the patient in coming to the hospital and wished to be of any help. He states he has been assisting the patient with paying his rent. He also stated the patients HCP is his sister who lives in [place] and is 90 years old and legally blind and he had concerns of that as well. He said to please reach out if needed and that the patient would OK for case management and providers to speak with him regarding his care.
--- NOTE | 2024-03-12 16:01 | MHC.CARE ---
Telma Pace [facility] MANAGER on hospital psychiatry team called and reports she feels patient may require IPLOC and requested CARE tea consult, please reach out to her on tiger text when assessed for collateral information.
--- NOTE | 2024-03-12 17:16 | PM.PSYCN ---
History of Present Illness Date of Service: 03/12/2024 Chief Complaint: fall/dizziness, secondary to vertigo, no thinners Reason for Consult: capacity Requesting physician: Breonna Georges Discussed with referring provider: Yes Sources of Information: patient interviewed and chart reviewed HPI Narrative: 84-year-old male presents via EMS after a fall. Patient states that he was getting to the bathroom around 02:00 and states he felt slightly dizzy and then fell backwards he states he did not lose conscious he did not hit his head he states he is down for prolonged period of time he noticed some stool underneath him he is able to get up with the bathroom after that. Patient found by EMS this state there was no stool or urine on him. Patient is unsure if he hit his head or if he had loss of consciousness he is unsure how long he was down. Patient was found by elderly services who came to check on him. He lives alone pt in bed in hospital [facility]. Pt oriented to self and [place] only.He did not know he was in a hospital or why he is in hospital; furthermore when I asked if he knew why he was in hospital he said he did not care; no eye contact; mood is irritable; When asked about family he says they don not care. He stated he has a HCP sister Estefani but did not know last name. Past Psychiatric History: unknown Medical Evaluation Reviewed: Yes [facility] Medical History Hematuria Impaired fasting glucose Basal cell carcinoma Incomplete emptying of bladder Benign prostatic hyperplasia with lower urinary tract symptoms Poor urinary stream Nocturia Erectile dysfunction due to arterial insufficiency Gallstones Bladder outlet obstruction Acute cystitis with hematuria Chronic prostatitis Elevated PSA Surgical History History of surgery Diagnostics Vital Signs (24Hr): Vital Signs - 24 hr 03/11/24 19:26 03/12/24 03:31 03/12/24 14:12 Temperature 97.7 F 98.8 F 97.6 F Pulse Rate 72 87 75 Respiratory Rate 17 17 16 Blood Pressure 137/71 148/86 H 100/57 L Pulse Oximetry 99 99 95 Oxygen Delivery Method Room Air Room Air Room Air BMI result Body Mass Index 20.8 Labs 03/10/24 17:31 03/11/24 19:23 Labs: Laboratory Results - last 48 hr 03/10/24 03/10/24 03/11/24 17:31 21:27 19:23 WBC 9.7 RBC 4.23 L Hgb 12.0 L Hct 36.0 L MCV 85.1 MCH 28.4 MCHC 33.3 RDW 14.7 Plt Count 326 MPV 9.5 Immature Gran % (Auto) 0.4 Neut % (Auto) 70.3 Lymph % (Auto) 19.3 L [place] % (Auto) 8.2 Eos % (Auto) 1.5 Baso % (Auto) 0.3 Lymph # (Auto) 1.9 [place] # (Auto) 0.8 Eos # (Auto) 0.2 Baso # (Auto) 0.0 Abs Immat Gran (auto) 0.04 H Absolute Neuts (auto) 6.8 Absolute Nucleated RBC 0.000 Nucleated RBC % (auto) 0.0 Sodium 140 141 Potassium 2.9 L* D 3.1 L Chloride 104 106 Carbon Dioxide 23 23 Anion Gap 16 15 BUN 27 H 16 Creatinine 1.27 0.83 Estim Creat Clear Calc 41.9 64.1 Estimated GFR 54 > 60 Random Glucose 171 H 176 H Calcium 10.6 H D 9.9 D Total Bilirubin 0.6 Direct Bilirubin 0.3 AST 12 ALT 15 Alkaline Phosphatase 79 Total Creatine Kinase 21 L Total Protein 6.7 Albumin 3.4 L Lipase 53 Urine Color Yellow Urine Appearance Clear Urine pH 5.5 Ur Specific [place] 1.025 Urine Protein 30 (1+) H Urine Glucose (UA) Negative Urine Ketones 15 Urine Blood Negative Urine Nitrite Negative Ur Leukocyte Esterase Trace H Urine RBC 0-2 Urine WBC 11-20 H Ur Squamous Epith Cells 0-2 Urine Bacteria Trace Hyaline Casts 11-20 Imaging Radiology Impressions: ITS Impressions Chest X-Ray 03/10/24 16:40 IMPRESSION: No acute intrathoracic disease. Thoracic kyphosis with mild anterior wedging of thoracic vertebral bodies. Cervical Spine CT 03/10/24 17:16 IMPRESSION: 1. No acute intracranial pathology. 2. No CT evidence of acute cervical spine fracture or traumatic subluxation Head CT 03/10/24 17:16 IMPRESSION: 1. No acute intracranial pathology. 2. No CT evidence of acute cervical spine fracture or traumatic subluxation Hip/Pelvis X-Ray 08/05/24 18:45 IMPRESSION: Mild degenerative changes but no acute fracture or dislocation. Mental Status Exam Mental Status Exam Narrative: withdrawan, eyes closed, one word answers, irritable, says he does not care why he is in hospital. says his family doesn't care about him; he is oriented to person and [place] only. Medications Medications Current Medications Acetaminophen (Acetaminophen 325 Mg Tablet) 650 mg PO Q12H PRN PRN Reason: Pain (Scale Score 1-3) Celecoxib (Celecoxib 100 Mg Capsule) 100 mg PO BID PRN PRN Reason: arthritis Triamcinolone Acetonide (Triamcinolone Acet 0.5 % Oint 15 Gm Tube) 1 appl TOPICAL BID YARELI Allergies Allergies Allergy/AdvReac Type Severity Reaction Status Date / Time No Known Allergies Allergy Verified 03/10/24 16:31 [No Known Allergies*] Assessment & Plan Assessment & Plan (1) Depression: Qualifiers: Depression Type: unspecified Qualified Code(s): F32.A - Depression, unspecified Status: Acute Code(s): F32.A - Depression, unspecified (2) Cognitive disorder: Status: Acute Code(s): F09 - Unspecified mental disorder due to known physiological condition Plan Pt does not have capacity to make informed medical decisons if able to find HCP could involve them for medical decision making recommend when medically cleared consider LOC assessment for inpatient geriatric psychiatry for depression Total time managing care of this patient today ____ minutes.
--- NOTE | 2024-03-12 17:34 | MHC.CM.ED ---
Addendum entered by Carmen Del Rio 03/12/24 21:09: Dr. Terry invoked the HCP. Addendum entered by Carmen Del Rio 03/12/24 20:46: HCP uploaded into [facility]. Addendum entered by Carmen Del Rio 03/12/24 20:28: Patient does not remember that the psych nurse practitioner met with him today. He does not remember anyone meeting with him. Both Moni Pace verified that she met with this patient and primary RN states that psych nurse practitioner met with him for 30 minutes. Pt thinks that staff is wrong. CM explained that perhaps he forgot. Pt denies. Pt is awaiting CARE team assessment. CARE team aware that patient does not remember meeting with psych today. HCP uploaded into [facility]. Copies given to patient and mailed to son. Addendum entered by Carmen Del Rio 03/12/24 20:27: CM met with patient. He is aware that his son is willing to be his HCP and he signed the HCP. He is aware that CM will give him a copy. Addendum entered by Carmen Del Rio 03/12/24 20:23: CM spoke with patient. He is in agreement that his sister is too old and has her own medical problems. He is agreeable to having his son, Earl Smith ([phone]) as his HCP if his son agrees. CM called patient's son, and he is willing to be the invoked HCP. He is aware that Moni Pace psychology technician does not feel patient has the capacity to make medical decisions and feels he needs anali-psych admission for depression. Earl is in agreement. Earl is aware that the CARE team will see his father and that CM will reach out to him tomorrow. Earl is aware that CM will mail copies of the HCP to him. Original Note: Reviewed psych consult. Per Moni Pace psychology technician- Pt does not have capacity to make medical decisions. Would recommend to invoke HCP if HCP agreeable. No documented HCP on file. Pt states his sister Estefani is his HCP. CM has called sister twice, but Estefani does not answer the phone or has not returned any telephone calls. Per son, Earl, Estefani is elderly and has her own health care problems. Awaiting CARE team assessment for possible admission to anali psych.
--- NOTE | 2024-03-12 20:34 | PC.NURSE ---
pharmacy called for missing meds
[2024-03-12 22:20] VITALS: BP 108/67; PULSE 70; RESP 16; TEMP 37; O2SAT 98
[2024-03-13 05:51] VITALS: BP 124/63; PULSE 77; RESP 18; TEMP 36.2; O2SAT 97
[2024-03-13] MEDS: Triamcinolone Acet 0.5 % Oint 15 GM TUBE 1 APPL TOPICAL (08:15)
[2024-03-13 14:00] VITALS: BP 108/66; PULSE 110; RESP 16; TEMP 36.4; O2SAT 99
[2024-03-13 15:56] VITALS: PULSE 74
--- NOTE | 2024-03-13 19:15 | MHC.EDTECH ---
This pct assumed care of patient at 1900 ,Patient resting quietly in bed .
--- NOTE | 2024-03-13 19:38 | MHC.CM.ED ---
Addendum entered by Carmen Del Rio 03/13/24 20:07: Dr. Burgess was given the INVOKED HCP contact information. Addendum entered by Carmen Del Rio 03/13/24 19:54: CM called Dr. Shira Burgess's office ([phone]) at the request of this patient to discuss the plan of care for his eyes. According to Dr. Burgess's office, this patient had right and left cataract repair with lens implants in 2018. Pt was see on January 28, 2024 and had a right eye revision of his lens. He has a f/u appointment on February 03 with ? of limited success of procedure, however patient has another appointment scheduled for 11/11/24 and the doctor will re-evalaute the need for L eye lens revision at that time. CM explained that patient's vision is very poor, and could not determine from office staff as to his visual acuity. Message will be left with Dr. Burgess about concerns patient has about his vision. They were given contact information for the HCP and were informed that the HCP has been invoked. CM called and spoke with HCP/son Earl Smith. Discussed his father's agreement for STR, even though his HCP is invoked and this choice to go to [facility] [place]. Earl is in agreement with STR and he accepted the bed at [facility]. He is aware that the facility has requested authorization. Earl is aware that auth may take 24-48 hours. If auth is not obtained tomorrow, then his father will probably be at [facility] over the weekend. Earl plans to visit his father this weekend. CM spoke with HCP about plans after rehab, as there are concerns that patient cannot live at home alone safely and needs LTC. Discussed finances. Will refer HCP to [facility] financial services for assistance with MH application. Original Note: CM called HCP/son Earl at 1600 and left a message to return telephone call to discuss plan of care for his father, including STR and CM discussion with Dr. Shira Evans's office. CM spoke with patient. Made him aware that [facility] cannot offer a bed. Pt requests [facility] in [place]. Is agreeable. Will need HCP approval, as HCP is invoked. Waiting for return phone call.
[2024-03-13 21:06] VITALS: BP 111/65; PULSE 66; RESP 16; TEMP 36.3; O2SAT 96
--- NOTE | 2024-03-13 21:13 | MHC.EDTECH ---
rounding done ,patient clean and dry ,vitals taken ,Patient refused sponge bath ,call siddiqui within Pt reach .
--- NOTE | 2024-03-13 22:53 | PC.NURSE ---
Patient has been able to call for assistance to use urinal at bedside; patient is a 1 assist with standing at this time. No s/s of distress noted at this time, chest rise equal and patient able to maintain airway.
[2024-03-14 06:01] VITALS: BP 139/69; PULSE 62; RESP 16; TEMP 36.8; O2SAT 97
--- NOTE | 2024-03-14 10:09 | MHC.CM.ED ---
Addendum entered by Megan Rayo 03/14/24 11:08: Pt has been cleared by CARE team and can transfer to [facility] for 1pm via [facility]. Pt's activated HCP/son Earl called and informed of transfer. ED care team and pt aware and in agreement. Original Note: Pt is medically cleared and ready for next level of care. STAT CARE team consult placed for ? INPT admission d/t depression as recommended by psych eval. Will await results of eval for determination of d/c needs. Message sent to [facility] informing them of the need for the consult. ED CM to follow
--- NOTE | 2024-03-14 11:24 | PC.NURSE ---
pt being transferee to [facility] at 1300, report give to Christy LEE
[2024-03-14 13:09] VITALS: BP 139/69; PULSE 62; RESP 16; TEMP 36.8; O2SAT 97
== END 2024-03-14 13:12 ==
PROVIDERS: Nurse Practitioner Family; Emergency Provider Student in an Organized Health Care Education/Training Program; PCP Student in an Organized Health Care Education/Training Program
DX: S09.90XA Unspecified injury of head, initial encounter (principal); F32.A Depression, unspecified; R26.2 Difficulty in walking, not elsewhere classified; R94.31 Abnormal electrocardiogram [ECG] [EKG]; I44.0 Atrioventricular block, first degree; R51.9 Headache, unspecified; M54.2 Cervicalgia; R53.83 Other fatigue; M25.552 Pain in left hip; W01.10XA Fall on same level from slipping, tripping and stumbling with subsequent striking against unspecified object, initial encounter; Y93.89 Activity, other specified; Y92.002 Bathroom of unspecified non-institutional (private) residence as the place of occurrence of the external cause; Y99.8 Other external cause status; Z79.899 Other long term (current) drug therapy
CPT/HCPCS: 36415; 70450; 71046; 72125; 73502; 80048; 80076; 81001; 81003; 82550; 83690; 85025; 87086; 93005; 97162; 99285; J3480; S9485

== ENCOUNTER → 2024-03-10 16:32 | Outpatient (BNV) | payer MEDICARE, SELFPAY | PROVIDERS: Emergency Provider Student in an Organized Health Care Education/Training Program; PCP Student in an Organized Health Care Education/Training Program; Visit Provider Internal Medicine Cardiovascular Disease | DX: R94.31 Abnormal electrocardiogram [ECG] [EKG] (principal) | CPT/HCPCS: 93010 ==

== ENCOUNTER → 2024-03-10 16:56 | Outpatient (BNV) | payer MEDICARE, SELFPAY | PROVIDERS: Emergency Provider Student in an Organized Health Care Education/Training Program; PCP Student in an Organized Health Care Education/Training Program; Visit Provider Clinical Nurse Specialist Psychiatric/Mental Health | DX: F32.A Depression, unspecified (principal); F09 Unspecified mental disorder due to known physiological condition | CPT/HCPCS: 99284 ==

== ENCOUNTER 2024-05-19 09:16 | Inpatient (IN) | payer MEDICARE, SELFPAY ==
[2024-05-19] VITALS (19 sets, daily range): BP systolic 00–123; BP diastolic 00–71; PULSE 92–145; RESP 25–50; TEMP 38.2; O2SAT 86–99; BMI 19.5
--- NOTE | ~2024-05-19 | XR_ITS ---
EXAMINATION: XR CHEST CLINICAL INFORMATION: SOB, covert positive COMPARISON: None available. TECHNIQUE: AP upright portable view of the chest was obtained. 10:00 AM FINDINGS: Multiple leads project over the chest. There is thoracic scoliosis with mild anterior wedged compression of thoracic vertebral bodies. There is a healed fracture of an upper right posterior rib. There is mild patchy opacity in both lung bases and midlungs consistent with atelectasis and/or pneumonia. Heart size is normal. Calcification of the thoracic orders indicative of atherosclerotic disease. No pneumothorax. No gross pleural effusion. Rounded density projected over a posterior right upper rib is likely cutaneous from former lead placement. XR/XR chest 1V IMPRESSION: 1. Mild bibasilar and mid lung atelectasis and/or pneumonia. 2. No gross pleural effusion. Electronically signed by: Lissette Rodrigues MD 05/19/2024 01:53 PM EDT
--- NOTE | 2024-05-19 09:32 | ECG_ITS ---
Test Reason : SOB Blood Pressure : / mmHG Vent. Rate : 120 BPM Atrial Rate : 120 BPM P-R Int : 158 ms QRS Dur : 068 ms QT Int : 300 ms P-R-T Axes : 077 039 121 degrees QTc Int : 424 ms Sinus tachycardia with Premature ventricular complexes or Fusion complexes Left ventricular hypertrophy with repolarization abnormality ( Sokolow-Malone ) Abnormal ECG When compared with ECG of 10-MAR-2024 17:04, Fusion complexes are now Present Premature ventricular complexes are now Present ND interval has decreased Referred By: Brian Dugan Electronically Signed By:CECI LARIOS
--- NOTE | 2024-05-19 09:34 | ED_ITS ---
HPI - SOB/Dyspnea General Chief Complaint: Dyspnea Stated Complaint: SOB Time Seen by Provider: 05/19/24 09:31 Source: EMS and old records reviewed Mode of arrival: EMS Limitations: altered mental status History of Present Illness ED Provider: DR. Dugan HPI Narrative: 84-year-old male [facility] from [facility] for evaluation of respiratory distress. as reported by EMS patient was tested positive for COVID now he has respiratory distress with hypoxia in the 80s, patient was started on CPAP during transportation, hypotensive 80/62 with heart rate of 142 on arrival patient is awake but not responsive to verbal stimuli and was placed on BiPAP machine with improvement of his O2 sat to in the 90s%, sepsis protocol was initiated. Unable to obtain history from the patient, reviewed patient record patient is DNR / DNI / do not use noninvasive ventilator therefore BiPAP is DC bleed and replace it with high-flow oxygen. Related Data Home Medications ?Medication ?Instructions ?Recorded ?Confirmed betamethasone dipropionate 0.05 % 1 appl topical BID 04/14/21 03/11/24 topical ointment acetaminophen 650 mg 650 mg PO Q12H PRN Pain (Scale 03/11/24 03/11/24 tablet,extended release Score 1-3) celecoxib 100 mg capsule 100 mg PO BID PRN arthritis 03/11/24 03/11/24 diclofenac sodium 1 % topical gel 2 g topical BID PRN arthritis pain 03/11/24 03/11/24 ibuprofen 600 mg tablet 600 mg PO Q8H 03/11/24 03/11/24 selenium sulfide 2.5 % lotion 1 appl topical DAILY dandruff 03/11/24 03/11/24 Allergies Allergy/AdvReac Type Severity Reaction Status Date / Time No Known Allergies Allergy Verified 05/19/24 09:31 [No Known Allergies*] Review of Systems 2 Review of Systems: Yes Unobtainable due to mental status PMFSH Past Medical History Medical History Hematuria Impaired fasting glucose Basal cell carcinoma Incomplete emptying of bladder Benign prostatic hyperplasia with lower urinary tract symptoms Poor urinary stream Nocturia Erectile dysfunction due to arterial insufficiency Gallstones Bladder outlet obstruction Acute cystitis with hematuria Chronic prostatitis Elevated PSA Surgical History History of surgery Social History Social History Alcohol intake: current Alcohol intake frequency: 3 or more drinks per day Alcohol type: beer Advance Directives: Yes Advance Directives on File: Yes Advance Directives Date on File: 03/12/24 Physical Exam 2 Vital Signs: Vital Signs: Last Vital Signs Temp 100.7 F H 05/19/24 09:58 Pulse 107 H 05/19/24 14:39 Resp 30 H 05/19/24 12:00 BP 81/49 L 05/19/24 14:39 Pulse Ox 88 L 05/19/24 12:00 O2 Del Method High Flow Nasal C annula 05/19/24 12:00 BMI result Body Mass Index 19.5 Vital signs have been reviewed and appear to be correct. hypotension. Heart rate Elevated. Respiratory rate 34. Temperature normal. Oxygen saturation normal. Appearance: awake, unresponsive to verbal stimuli, disregard examiner, in acute respiratory distress. Head: Normal external exam. Normocephalic. Atraumatic. No Castano signs noted. No raccoon eyes noted Eyes: PERRLA. EOMI. Conjunctiva and sclera normal. Eyelids normal. ENT: TM's Normal. Pharynx normal. Uvula midline. Moist mucous membranes. No trismus noted. No drooling noted. No muffled voice noted. Neck: Normal inspection. Neck supple. FROM. No adenopathy. Thyroid Normal. No meningeal signs. No neck mass noted. CVS: Normal heart rate and rhythm. Heart sound normal. No murmurs noted. Pulses normal throughout. Respiratory: In acute respiratory distress.Painless inspiration. Breath sounds normal. No wheezes/rales/rhonchi noted. Chest nontender. No accessory muscle usage noted or decreased air movement noted. Abdomen: Soft and nontender. Bowel sounds normal in all 4 quadrants. No distention noted. No organomegaly noted. No visible injury noted. Back: No CVA tenderness. Full range of motion noted. Skin: Skin warm and dry. Normal skin color. Normal skin turgor. No rashes/lesions/lacerations noted. Extremities: No lower extremity edema. Extremities exhibit normal range of motion. Extremities nontender. Neuro: Oriented X 3. Cranial nerve exam: II-XII are grossly intact No motor deficit. No sensory deficit. Reflexes normal. Course Reevaluation(s) Reevaluation #1: Attempt to call Luis Elliott the son to update on the patient's critical condition phone [phone] left a voice message Time: 10:39 Reevaluation #2: Spoke with the son over the phone, son would like to keep his father's wishes as DNR/DNI /no invasive ventilator, driving from [facility] will be in the ER momentarily ask me to follow his DNR wishes without changes, patient received fluid, antibiotic, high flow oxygen, now on Levophed to maintain blood pressure, as per son's request to make him also comfortable as much as we can patient was given fentanyl IV. Time: 12:35 Reevaluation #3: talking to the son at the bedside decision is to comply with patient's wishes, son at this point agreed to discontinue everything including oxygen, Levophed, fluid, antibiotic and just make him comfortable. Time: 14:44 Medications Administered Generic Name Dose Route Start Last Admin Trade Name Freq PRN Reason Stop Dose Admin Norepinephrine Bitartrate 8 mg in 250 mls @ 0 mls/hr 05/19/24 11:45 05/19/24 14:39 Levophed IVCONT 0.17 mcg/kg/min .Q0M YARELI 18.52 mls/hr Titration Protocol Per Protocol Discontinued Medications Generic Name Dose Route Start Last Admin Trade Name Freq PRN Reason Stop Dose Admin Albuterol Sulfate 7.5 mg/ 10 mg 05/19/24 09:48 05/19/24 09:56 Albuterol Sulfate 2.5 mg INHALE 05/19/24 09:49 10 mg ONCE ONE Administration Ceftriaxone Sodium 1 gm 05/19/24 09:31 05/19/24 09:52 Ceftriaxone Sodium 1 Gm Vial IVPUSH 05/19/24 09:32 1 gm ONCE ONE Administration Fentanyl 25 mcg 05/19/24 11:40 05/19/24 11:50 Fentanyl Citrate/Pf 100 Mcg/2 Ml Vial IVPUSH 05/19/24 11:41 25 mcg ONCE ONE Administration Protocol Sodium Chloride 1,743 mls @ 1,743 mls/hr 05/19/24 09:33 05/19/24 10:50 Ns 30 ml/kg infuse over 1 hr (1743 ml) 05/19/24 10:32 Infused IV Infusion .Q1H STA Azithromycin 500 mg/ Sodium 250 mls @ 125 mls/hr 05/19/24 10:09 05/19/24 12:34 Chloride IV 05/19/24 12:08 Infused ONCE ONE Infusion Levalbuterol HCl 5 mg 05/19/24 11:31 05/19/24 11:38 Levalbuterol Hcl 1.25 Mg/3 Ml Vial.Neb INHALE 05/19/24 11:32 5 mg ONCE ONE Administration Medical Decision Making Differential Diagnosis Differential Diagnoses: The differential diagnosis associated with the presentation includes ( Pneumonia, pneumothorax, pleural effusion, COVID pneumonia, severe sepsis, DNR, DNI, do use noninvasive ventilator.) Admission/Observation Consideration of admission/observation: Escalation of care including admission/observation considered Consult Healthcare Provider Management of the patient was discussed with: Hospitalist ( Dr. Mcmanus) Lab Data MDM Lab Attestation statement: I reviewed the patient's lab results. 05/19/24 09:39 05/19/24 09:39 Labs: Lab Results 05/19/24 05/19/24 05/19/24 Range/Units 09:31 09:39 09:47 WBC 3.5 L (4.8-10.8) X10*3/uL RBC 5.69 D (4.60-5.80) X10*6/uL Hgb 15.3 D (14.0-18.0) g/dl Hct 47.7 D (42.0-52.0) % MCV 83.8 (80.0-98.0) fL MCH 26.9 L (27.0-33.0) pg MCHC 32.1 (31.0-36.0) g/dl RDW 21.4 H (11.0-16.0) % Plt Count 191 D (160-400) X10*3/uL MPV 10.5 (9.4-12.4) fL Immature Gran % (Auto) Cancelled Neut % (Auto) Cancelled Lymph % (Auto) Cancelled Owsley % (Auto) Cancelled Eos % (Auto) Cancelled Baso % (Auto) Cancelled Lymph # (Auto) Cancelled [place]wsley # (Auto) Cancelled Eos # (Auto) Cancelled Baso # (Auto) Cancelled Abs Immat Gran (auto) Cancelled Absolute Neuts (auto) Cancelled Absolute Nucleated RBC 0.110 H (0.0-0.012) X10*3/uL Nucleated RBC % (auto) 3.1 H (0.0-0.2) /100WBC Neutrophils % (Manual) 50 (45-73) % Band Neutrophils % 19 H (3-5) % Lymphocytes % (Manual) 30 (20-40) % Monocytes % (Manual) 1 L (2-11) % Abs Neuts (Manual) 2.4 (2.0-8.3) X10*3/uL Lymphocytes # (Manual) 1.1 L (1.2-4.9) X10*3/uL Nucleated RBCs 5 H (0-0) /100WBC Toxic Vacuolation PRESENT Platelet Estimate NORMAL (NORMAL) Plt Morphology Comment NORMAL RBC Morphology NOTED Acanthocytes (Spur) 2+ (3-5) /OIF VBG pH 7.23 L (7.32-7.43) VBG pCO2 33 mmHg VBG pO2 43 mmHg VBG HCO3 14 L (22-26) mmol/L VBG O2 Saturation 50.0 % VBG Base Excess -11.8 mmol/L Sodium 146 H (135-145) mmol/L Potassium 4.5 D (3.3-5.1) mmol/L Chloride 99 (96-108) mmol/L Carbon Dioxide 14 L (22-29) mmol/L Anion Gap 38 H (12-20) BUN 58 H (9-16) mg/dL Creatinine 2.80 H (0.5-1.4) mg/dL Estim Creat Clear Calc 15.8 Estimated GFR 22 POC Glucose 212 H (60-115) mg/dL Random Glucose 193 H (60-115) mg/dL Lactic Acid 12.9 H* (0.5-2.0) mmol/L Calcium 10.4 H (8.4-10.2) mg/dL Total Bilirubin 3.5 H (0.0-1.0) mg/dL Direct Bilirubin 2.1 H (0.0-0.5) mg/dL AST 31 (5-37) U/L ALT 12 (0-40) U/L Alkaline Phosphatase 90 (39-117) U/L Troponin I High Sens 69.5 H (<3.5-35.0) ng/L B-Natriuretic Peptide 310 H (<100) pg/mL Total Protein 7.0 (6.5-8.0) g/dL Albumin 3.1 L (3.5-5.0) g/dL Lipase 4 L (8-78) U/L Influenza Type A (PCR) NEGATIVE (Negative) Influenza Type B (PCR) NEGATIVE (Negative) RSV RNA Qual (PCR) NEGATIVE (Negative) SARS-CoV-2 RNA (RT-PCR) POSITIVE A (Negative) Independent Interpretation I performed an independent interpretation of an: Plain X-Ray ( chest:1. Mild bibasilar and mid lung atelectasis and/or pneumonia. 2. No gross pleural effusion. ) Radiology Impression Discussion of test interpretation with radiology: I have reviewed the radiologist's reading. Discharge Plan Discharge Clinical Impression: Comfort measures only status, Pneumonia due to COVID-19 virus, Pneumonia Patient Disposition: Admitted As Inpatient Prescriptions: No Action acetaminophen [Tylenol Arthritis] 650 mg Tablet Extended Release 650 mg PO Q12H PRN (Reason: Pain (Scale Score 1-3)) ibuprofen 600 mg tablet 600 mg PO Q8H diclofenac sodium 1 % gel 2 g TOPICAL BID PRN (Reason: arthritis pain) selenium sulfide 2.5 % lotion 1 appl TOPICAL DAILY celecoxib 100 mg capsule 100 mg PO BID PRN (Reason: arthritis) betamethasone dipropionate 0.05 % ointment 1 appl topical BID Print Language: Irish
[2024-05-19 09:41] LABS: Glucose, Whole Blood 212 mg/dL (60-115)
[2024-05-19 09:50] LABS: Venous Blood Gas Refer to POC result
[2024-05-19] MEDS: SODIUM CHLORIDE 1743 ML IV (09:50)
[2024-05-19 09:51] LABS: VBG Base Excess -11.8 mmol/L; VBG HCO3 14 mmol/L (22-26); VBG pCO2 33 mmHg; VBG pH 7.23 (7.32-7.43); VBG pO2 43 mmHg
[2024-05-19] MEDS: cefTRIAXone sodium 1 GM VIAL IVPUSH (09:52)
[2024-05-19 09:56] LABS: Hematocrit 47.7 % (42.0-52.0); Hemoglobin 15.3 g/dl (14.0-18.0); Mean Corpuscular HGB Conc 32.1 g/dl (31.0-36.0); Mean Corpuscular Hemoglobin 26.9 pg (27.0-33.0); Mean Corpuscular Volume 83.8 fL (80.0-98.0); Mean Platelet Volume 10.5 fL (9.4-12.4); Platelet Count 191 X10*3/uL (160-400); Red Blood Count 5.69 X10*6/uL (4.60-5.80); Red Cell Distribution Width 21.4 % (11.0-16.0)
[2024-05-19] MEDS: Albuterol Sulfate 7.5 MG, Albuterol Sulfate (0.083%) 2.5 MG 10 MG INHALE (09:56)
[2024-05-19 09:57] LABS: NRBC Pct Auto 3.1 /100WBC (0.0-0.2); WBC ABN SCTR FOR CBC 1
[2024-05-19 10:14] LABS: Alanine Aminotransferase 12 U/L (0-40); Albumin Level 3.1 g/dL (3.5-5.0); Alkaline Phosphatase 90 U/L (39-117); Anion Gap 38 (12-20); Aspartate Amino Transferase 31 U/L (5-37); Bilirubin Direct 2.1 mg/dL (0.0-0.5); Bilirubin Total 3.5 mg/dL (0.0-1.0); Blood Urea Nitrogen 58 mg/dL (9-16); Calcium 10.4 mg/dL (8.4-10.2); Carbon Dioxide 14 mmol/L (22-29); Chloride 99 mmol/L (96-108); Creatinine Clr Calc Pharmacy 15.8; Estimated Glomerular Filt Rate 22; Glucose Random 193 mg/dL (60-115); Lipase 4 U/L (8-78); Potassium 4.5 mmol/L (3.3-5.1); Sodium 146 mmol/L (135-145)
[2024-05-19 10:15] LABS: Lactic Acid 12.9 mmol/L (0.5-2.0)
[2024-05-19 10:18] LABS: B Type Natriuretic Peptide 310 pg/mL (<100)
[2024-05-19 10:19] LABS: Troponin-I High Sensitivity 69.5 ng/L (<3.5-35.0)
[2024-05-19 10:30] LABS: Influenza A PCR NEGATIVE (Negative); Influenza B PCR NEGATIVE (Negative); Resp Syncy Virus RNA Qual PCR NEGATIVE (Negative); SARS COV2 PCR INHOUSE POSITIVE (Negative)
[2024-05-19] MEDS: Azithromycin 500 MG in 0.9 % Sodium Chloride 250 ML 125 MG IV (10:30)
[2024-05-19 10:38] LABS: Neutrophils Percent Manual 50 % (45-73)
[2024-05-19 10:39] LABS: Band Neutrophils Percent 19 % (3-5); Lymphocytes Percent Manual 30 % (20-40); Monocytes Percent Manual 1 % (2-11); Nucleated Red Blood Cells 5 /100WBC (0-0)
[2024-05-19 10:41] LABS: Acanthocytes 2+ (3-5) /OIF; Platelet Estimate NORMAL (NORMAL); Platelet Morphology Comment NORMAL; RBC Morphology NOTED
--- NOTE | 2024-05-19 10:42 | PC.NURSE ---
pt come sin to ED via EMS from [facility] Pt arrived on CPap with spo2 reported by EMS in the low 90s. They arrived at the SNF to find the pt very short of breath, on a nasal cannula with spo2 in the 80s, CPAP started. IN ED pt switched to BiPap and then high flow nasal cannula. Spo2 has maintained in the high 90s with good waveform. labs drawn, blood cultures drawn, IVs placed. Fluids started per protocol and ABX given. Upon arrival pt was minimally responsive. He was not blinking, following commands or tracking. Now, pt is speaking a little though in a muffled voice. He answers questions yes or no. Resp Rate initially in the 30s but has increased to about 50. Pt is in afib in the 120s-130s but has a few intermittent increases to 150-160 and then goes back down. notified of these changes in vitals.
[2024-05-19 10:45] LABS: Toxic Vacuolation PRESENT
[2024-05-19 10:50] LABS: Lymphocytes Absolute Manual 1.1 X10*3/uL (1.2-4.9); Neutrophils Absolute Manual 2.4 X10*3/uL (2.0-8.3); White Blood Count 3.5 X10*3/uL (4.8-10.8)
[2024-05-19] MEDS: levalbuterol HCL 1.25 MG/3 ML VIAL.NEB 5 MG INHALE (11:38)
[2024-05-19 11:44] LABS: Reflex Lactate? Lactic Acid Added
[2024-05-19] MEDS: Norepinephrine Bitartrate/D5W 8 MG/250 ML PLAST..BAG 5.45 MG IVCONT (11:50)
[2024-05-19] MEDS: fentaNYL citrate/PF 100 MCG/2 ML VIAL 25 MCG IVPUSH (11:50)
--- NOTE | 2024-05-19 12:04 | PC.NURSE ---
per MD order, continue norepi infusion even though HR is above max of protocol
--- NOTE | 2024-05-19 13:12 | PC.NURSE ---
per Dr. Dugan do not draw the repeat Lactic lab
--- NOTE | 2024-05-19 14:57 | PC.RT ---
pt taken off High flow and placed on 2L oxy mask for comfort MD request.
--- NOTE | 2024-05-19 15:10 | PM.IMHP ---
History of Present Illness Date of Service: 05/19/24 Chief Complaint: ASSISTANT COOK The patient is 84-year-old male who is a resident of a senior care facility and presents to the emergency room with altered mental status. Currently the patient is unable to provide a history and hence the history is obtained from the ED provider. Apparently the patient tested positive for COVID several days ago at the senior care facility. He has continually declined since then. He now presents with encephalopathy, respiratory distress, hypoxia, hypotension. Initially the patient was treated for these conditions. The case was discussed by the ED provider with the patient's son, healthcare proxy, who has since arrived to the ED. after thorough discussion, the son has elected for comfort measures only. The patient is seen and examined in the emergency room around 15:00. The son is bedside as is his significant other. I have reconfirmed goals of care to be comfort measures only. Review of Systems Review of Systems: Unable to review due to mental status PMFSH Medical History Hematuria Impaired fasting glucose Basal cell carcinoma Incomplete emptying of bladder Benign prostatic hyperplasia with lower urinary tract symptoms Poor urinary stream Nocturia Erectile dysfunction due to arterial insufficiency Gallstones Bladder outlet obstruction Acute cystitis with hematuria Chronic prostatitis Elevated PSA Surgical History History of surgery Social History Alcohol intake: current Alcohol intake frequency: 3 or more drinks per day Alcohol type: beer Advance Directives: Yes Advance Directives on File: Yes Advance Directives Date on File: 03/12/24 Meds Allergies Allergy/AdvReac Type Severity Reaction Status Date / Time No Known Allergies Allergy Verified 05/19/24 09:31 [No Known Allergies*] Active Medications: Current Medications Norepinephrine Bitartrate (Levophed) 8 mg in 250 mls @ 0 mls/hr IVCONT .Q0M [facility]; Protocol Last Titration: 05/19/24 14:39 Dose: 0.17 mcg/kg/min, 18.52 mls/hr Morphine Sulfate (Morphine Sulfate 2 Mg/Ml Cartridge) 2 mg IVPUSH Q1H PRN PRN Reason: Pain, Severe (7-10)/ RR>/=24 Ondansetron HCl (Ondansetron Odt 4 Mg Tab.Rapdis) 4 mg TRANSLINGU Q8H PRN PRN Reason: Nausea and Vomiting Home Medications ?Medication ?Instructions ?Recorded ?Confirmed ?Last Taken ?Type betamethasone dipropionate 0.05 % 1 appl topical BID 04/14/21 03/11/24 Unknown History topical ointment acetaminophen 650 mg 650 mg PO Q12H PRN Pain (Scale 03/11/24 03/11/24 Unknown History tablet,extended release Score 1-3) celecoxib 100 mg capsule 100 mg PO BID PRN arthritis 03/11/24 03/11/24 Unknown History diclofenac sodium 1 % topical gel 2 g topical BID PRN arthritis pain 03/11/24 03/11/24 Unknown History ibuprofen 600 mg tablet 600 mg PO Q8H 03/11/24 03/11/24 Unknown History selenium sulfide 2.5 % lotion 1 appl topical DAILY dandruff 03/11/24 03/11/24 Unknown History Physical Exam Vital Signs and Narrative: Vital Signs: Last Vital Signs Temp 100.7 F H 05/19/24 09:58 Pulse 107 H 05/19/24 14:39 Resp 30 H 05/19/24 12:00 BP 81/49 L 05/19/24 14:39 Pulse Ox 88 L 05/19/24 12:00 O2 Del Method High Flow Nasal C annula 05/19/24 12:00 BMI result Body Mass Index 19.5 Const: Other: Lethargic with essentially no response to verbal stimuli Tachycardic in the 1 teens, saturations in the upper 80s on high-flow nasal cannula Blood pressure in the 80s, on Levophed Pupils are equal and round and reactive Results Labs 05/19/24 09:39 05/19/24 09:39 Labs: Laboratory Results - last 24 hr 05/19/24 05/19/24 05/19/24 09:31 09:39 09:47 MCV 83.8 MCH 26.9 L MCHC 32.1 RDW 21.4 H Plt Count 191 D MPV 10.5 Immature Gran % (Auto) Cancelled Neut % (Auto) Cancelled Lymph % (Auto) Cancelled Haakon % (Auto) Cancelled Eos % (Auto) Cancelled Baso % (Auto) Cancelled Lymph # (Auto) Cancelled Haakon # (Auto) Cancelled Eos # (Auto) Cancelled Baso # (Auto) Cancelled Abs Immat Gran (auto) Cancelled Absolute Neuts (auto) Cancelled Absolute Nucleated RBC 0.110 H Nucleated RBC % (auto) 3.1 H Neutrophils % (Manual) 50 Band Neutrophils % 19 H Lymphocytes % (Manual) 30 Monocytes % (Manual) 1 L Abs Neuts (Manual) 2.4 Lymphocytes # (Manual) 1.1 L Nucleated RBCs 5 H Toxic Vacuolation PRESENT Platelet Estimate NORMAL Plt Morphology Comment NORMAL RBC Morphology NOTED Acanthocytes (Spur) 2+ (3-5) VBG pH 7.23 L VBG pCO2 33 VBG pO2 43 VBG HCO3 14 L VBG O2 Saturation 50.0 VBG Base Excess -11.8 Anion Gap 38 H Estim Creat Clear Calc 15.8 Estimated GFR 22 POC Glucose 212 H Random Glucose 193 H Lactic Acid 12.9 H* Calcium 10.4 H Total Bilirubin 3.5 H Direct Bilirubin 2.1 H AST 31 ALT 12 Alkaline Phosphatase 90 Troponin I High Sens 69.5 H B-Natriuretic Peptide 310 H Total Protein 7.0 Albumin 3.1 L Lipase 4 L Influenza Type A (PCR) NEGATIVE Influenza Type B (PCR) NEGATIVE RSV RNA Qual (PCR) NEGATIVE SARS-CoV-2 RNA (RT-PCR) POSITIVE A Imaging Radiologist's Impressions: Impressions Chest X-Ray 05/19/24 09:32 IMPRESSION: 1. Mild bibasilar and mid lung atelectasis and/or pneumonia. 2. No gross pleural effusion. Electronically signed by: Lissette Rodrigues MD 05/19/2024 01:53 PM EDT Assessment and Plan (1) Pneumonia: Status: Acute (2) Comfort measures only status: Status: Acute Plan 84-year-old male with chronic prostatitis, bladder outlet obstruction, prior hematuria, prior basal cell carcinoma, impaired fasting glucose who is a resident of a senior care facility. He presents with a several day history of COVID, and has become increasingly confused. His workup in the emergency room is consistent with COVID, likely bacterial pneumonia causing septic shock. After thorough discussion with his son, healthcare proxy, his status has been changed to comfort care only. Comfort measures only Consult case management and hospice IV morphine p.r.n., IV Ativan p.r.n. Supplemental oxygen for comfort Presenting conditions: 1. Septic shock due to suspected bacterial pneumonia 2. COVID-19 3. Acute respiratory failure with hypoxia 4. Metabolic/toxic encephalopathy 5. Acute liver injury 6. Acute kidney injury Quality Stroke Does the patient have a stroke diagnosis?: No VTE Prior VTE?: No VTE Risk Level:: Medical - moderate - high VTE Device Contraindication: Treatment Not Indicated VTE Drug Contraindication: Treatment Not Indicated
[2024-05-19] MEDS: Morphine Sulfate 2 MG/ML CARTRIDGE IVPUSH (15:18)
--- NOTE | 2024-05-19 16:42 | PC.NURSE ---
Time of : 16:30. Provider (Yonathan) aware. Family at bedside during the patient's . Patient comfort measures only.
--- NOTE | 2024-05-19 16:57 | PM.DDS ---
Discharge Sum: Prov Provider Primary care physician: Deb Brown MD Consults: 05/19/24 15:02 Consult to Case Management Routine Comment: Consult to Hospice Routine Comment: Discharge Sum: Diag Contributing Factors (1) Pneumonia: (2) Comfort measures only status: Discharge Sum: Summary Date and Time Date of admission: 05/19/24 15:45 Date of : 05/19/24 Time of : 16:30 Summary Details: The patient is 84-year-old male who is a resident of a group home facility and presents to the emergency room with altered mental status. Currently the patient is unable to provide a history and hence the history is obtained from the ED provider. Apparently the patient tested positive for COVID several days ago at the group home facility. He has continually declined since then. He now presents with encephalopathy, respiratory distress, hypoxia, hypotension. Initially the patient was treated for these conditions. The case was discussed by the ED provider with the patient's son, healthcare proxy, who has since arrived to the ED. after thorough discussion, the son has elected for comfort measures only. The patient is seen and examined in the emergency room around 15:00. The son is bedside as is his significant other. I have reconfirmed goals of care to be comfort measures only. Comfort measures only Consult case management and hospice IV morphine p.r.n., IV Ativan p.r.n. Supplemental oxygen for comfort Presenting conditions: 1. Septic shock due to suspected bacterial pneumonia 2. COVID-19 3. Acute respiratory failure with hypoxia 4. Metabolic/toxic encephalopathy 5. Acute liver injury 6. Acute kidney injury ID bracelet checked and patient confirmed. No response to tactile stimuli. No heart sounds or respiratory movement noted over one minute of auscultation, palpation or visualization. Pupils fixed with no response to light. Patient pronounced at 16:30 in the emergency department with family present. Additional Data Attending physician: Lui Mcmanus MD
--- NOTE | 2024-05-19 17:09 | PC.NURSE ---
[facility] called at 1708. They declined donor services due to age
--- NOTE | 2024-05-20 08:58 | MHC.CM.ED ---
Received CM consult : upon review it was noted pt had .
== END 2024-05-19 20:09 | disposition expired | DRG 951 ==
LOC: HO.ED 14:48 → HO.EDOVER 15:48
PROVIDERS: Admitting Provider Family Medicine; Emergency Provider Emergency Medicine; PCP General Practice; Visit Provider Family Medicine
DX: Z51.5 Encounter for palliative care (principal); A41.9 Sepsis, unspecified organism; U07.1 COVID-19; J15.9 Unspecified bacterial pneumonia; R65.21 Severe sepsis with septic shock; J96.01 Acute respiratory failure with hypoxia; G92.8 Other toxic encephalopathy; N17.9 Acute kidney failure, unspecified; N41.1 Chronic prostatitis; Z79.899 Other long term (current) drug therapy
CPT/HCPCS: 0241U; 36415; 71045; 80048; 80076; 82803; 82947; 83605; 83690; 83880; 84484; 85007; 85027; 87040; 93005; 99285; J0456; J0696; J2270; J3010

== ENCOUNTER → 2024-05-19 09:32 | Outpatient (BNV) | payer MEDICARE, SELFPAY | PROVIDERS: Admitting Provider Family Medicine; Emergency Provider Emergency Medicine; PCP General Practice; Visit Provider Internal Medicine | DX: R94.31 Abnormal electrocardiogram [ECG] [EKG] (principal) | CPT/HCPCS: 93010 ==

== ENCOUNTER → 2024-05-19 10:11 | Outpatient (BNV) | payer MEDICARE, SELFPAY | PROVIDERS: Emergency Provider Emergency Medicine; PCP General Practice; Visit Provider Family Medicine | DX: J18.9 Pneumonia, unspecified organism (principal); Z51.5 Encounter for palliative care | CPT/HCPCS: 99235; 99499 ==